=== PATIENT | male | born 1960 | race Caucasian/White ===

== ENCOUNTER 2016-12-03 14:57 | Emergency (ER) | payer BC ==
[2016-12-03 15:19] VITALS: BP 107/73; TEMP 97.4; O2SAT 95
[2016-12-03] MEDS ORDERED: FUROSEMIDE 40 MG TAB PO ONE (15:25)
--- NOTE | 2016-12-03 15:28 | ED.PDOC ---
History of Present Illness - General Chief Complaint: General Stated Complaint: legs swelling and foot pain Time Seen by Provider: 12/03/16 15:04 Source: patient Exam Limitations: no limitations - History of Present Illness Initial Comments: the patient is a 56-year-old male presenting to the emergency room secondary to some swelling in his bilateral lower extremities. He is having some pain with the swelling. No shortness of breath and no palpitations. No chest pain. No cough. He was recently started on Lyrica. He is diabetic. He is fairly sedentary with the exception of standing for long periods of time Timing/Duration: 1 week, constant, getting worse Severity: mild Improving Factors: nothing Worsening Factors: nothing Associated Symptoms: denies symptoms Allergies/Adverse Reactions: Allergies NO KNOWN ALLERGY Allergy (Verified 12/03/16 15:15) Home Medications: Ambulatory Orders Isosorbide Mononitrate [Isosorbide Mononitrate ER] 30 mg PO DAILY 12/03/16 Metformin HCl [Metformin HCl ER] 500 mg PO BID 12/03/16 Metoprolol Tartrate [Lopressor] 25 mg PO DAILY 12/03/16 Pioglitazone HCl [Actos] 15 mg PO ACHS 12/03/16 Review of Systems - Review of Systems Constitutional: States: no symptoms reported EENTM: States: no symptoms reported Respiratory: States: no symptoms reported Cardiology: States: no symptoms reported Gastrointestinal/Abdominal: States: no symptoms reported Genitourinary: States: no symptoms reported Musculoskeletal: States: see HPI Skin: States: see HPI Neurological: States: numbness - with his chronic neuropathy, paresthesia All other Systems: No Change from Baseline Past Medical History (General) - Patient Medical History Hx Cardiac Disorders: Yes Hx Hypertension: Yes Hx Diabetes: Yes Hx Gastroesophageal Reflux: Yes Hx Cancer: No - Vaccination History Hx Tetanus, Diphtheria Vaccination: No Hx Influenza Vaccination: No Hx Pneumococcal Vaccination: No Immunizations Up to Date: No - Social History Hx Alcohol Use: No Hx Substance Use: No - Female History Patient : No Family Medical History - Family History Father Family History: No Known Living Status: Physical Exam - Physical Exam General Appearance: Alert, Comfortable, No apparent distress Eye Exam: bilateral normal Ears, Nose, Throat: normal ENT inspection, normal pharynx Neck: full range of motion, supple, normal inspection Respiratory: chest non-tender, lungs clear, normal breath sounds, no respiratory distress, no accessory muscle use Cardiovascular/Chest: normal peripheral pulses, regular rate, rhythm, no edema Peripheral Pulses: radial,right: 2+, radial,left: 2+, dorsalis pedis,right: 2+, dorsalis pedis,left: 2+, posterior tibialis,right: 2+, posterior tibialis,left: 2+ Gastrointestinal/Abdominal: non tender, soft Rectal Exam: deferred Back Exam: normal inspection, no CVA tenderness, no vertebral tenderness Extremity: normal range of motion, no calf tenderness, normal capillary refill, pedal edema Neurologic: alert, normal mood/affect, oriented x 3 Skin Exam: normal color Comments: Vital Signs - 24 hr 12/03/16 15:15 Temperature 97.4 F L Pulse Rate [ 66 monitor] Respiratory 20 Rate Blood Pressure 107/73 [RA] O2 Sat by Pulse 95 Oximetry Progress - Progress Progress: 12/03/16 15:28 the patient is a 56-year-old male presenting with bilateral lower extremity edema that may be related to the Lyrica that was started for his chronic neuropathic pain. The patient needs to stop the Lyrica for the next week. He will be placed on Lasix 40 mg daily for the next 4 days. Needs follow -up with his primary care doctor towards the end of this week or early next week. He needs to have his kidney function followed. He needs to follow his weights daily. A reduction in salt intake may help as well. he needs To control his blood sugars well. he needs to return to the emergency room for any acute worsening. he needs to wear mild compression stockings when he is standing up to help reduce edema. When he is not moving around he needs to elevate his legs. He is to perform exercises with bilateral lower extremities as the muscle contraction can help to improve venous return and decrease edema. Departure - Departure Clinical Impression: Edema Qualifiers: Edema type: unspecified Disposition: Discharge to Home or Self Care Condition: Fair Departure Forms: ED Discharge - Pt. Copy, Patient Portal Self Enrollment Instructions: DI for Dependent Edema Diet: diabetic diet, low salt diet Activity: increase activity as tolerated Referrals: ANEESH VARGAS [Primary Care Provider] - 1-5 Days Home Medications: Ambulatory Orders Isosorbide Mononitrate [Isosorbide Mononitrate ER] 30 mg PO DAILY 12/03/16 Metformin HCl [Metformin HCl ER] 500 mg PO BID 12/03/16 Metoprolol Tartrate [Lopressor] 25 mg PO DAILY 12/03/16 Pioglitazone HCl [Actos] 15 mg PO ACHS 12/03/16 Additional Instructions: the patient is a 56-year-old male presenting with bilateral lower extremity edema that may be related to the Lyrica that was started for his chronic neuropathic pain. The patient needs to stop the Lyrica for the next week. He will be placed on Lasix 40 mg daily for the next 4 days. Needs follow -up with his primary care doctor towards the end of this week or early next week. He needs to have his kidney function followed. He needs to follow his weights daily. A reduction in salt intake may help as well. he needs To control his blood sugars well. he needs to return to the emergency room for any acute worsening. he needs to wear mild compression stockings when he is standing up to help reduce edema. When he is not moving around he needs to elevate his legs. He is to perform exercises with bilateral lower extremities as the muscle contraction can help to improve venous return and decrease edema. if the patient is taking Actos or pioglitazone for his diabetes, this in combination with Lyrica may be causing the edema and may need to be addressed.
== END 2016-12-03 15:56 | disposition home or self-care (01) ==
LOC: ER 14:57
DX: R60.0 Localized edema (principal); I10 Essential (primary) hypertension; E11.9 Type 2 diabetes mellitus without complications; K21.9 Gastro-esophageal reflux disease without esophagitis; Z79.899 Other long term (current) drug therapy